=== PATIENT | female | born 1985 | race Caucasian/White ===

== ENCOUNTER 2016-12-08 19:10 | Emergency (ER) | payer MEDICAID ==
[~2016-12-08] VITALS: Ht 157.5 cm; Wt 78.9 kg
[2016-12-08 19:29] VITALS: BP 144/96
== END 2016-12-08 21:00 | disposition home or self-care (01) ==
LOC: ED 19:10
DX: S40.861A Insect bite (nonvenomous) of right upper arm, initial encounter (principal); L08.9 Local infection of the skin and subcutaneous tissue, unspecified; W57.XXXA Bitten or stung by nonvenomous insect and other nonvenomous arthropods, initial encounter; Y93.89 Activity, other specified; Y92.89 Other specified places as the place of occurrence of the external cause; Y99.8 Other external cause status
CPT/HCPCS: J1885

== ENCOUNTER 2016-12-17 10:26 | Emergency (ER) | payer MEDICAID ==
[2016-12-17 10:27] VITALS: BP 145/100
== END 2016-12-17 11:21 | disposition home or self-care (01) ==
LOC: ED 10:26
DX: S00.86XA Insect bite (nonvenomous) of other part of head, initial encounter (principal); B96.89 Other specified bacterial agents as the cause of diseases classified elsewhere; W57.XXXA Bitten or stung by nonvenomous insect and other nonvenomous arthropods, initial encounter; Y93.89 Activity, other specified; Y92.89 Other specified places as the place of occurrence of the external cause; Y99.8 Other external cause status